=== PATIENT | female | born 1965 | race Caucasian/White ===

== ENCOUNTER 2017-03-14 09:02 | Inpatient (IN) | payer OTHER ==
[~2017-03-14 09:02] MED LIST: ROPIVACAINE 0.2% 80 MG, EPINEPHrine 0.2 MG, KETOROLAC TROMETHAMINE 30 MG in BAG 0 ML IU ONE; TRANEXAMIC ACID 3,000 MG in NS 50 ML IRR ONE; TRANEXAMIC ACID 3,000 MG/50 ML BAG IRR ONE; VANCOMYCIN 1 GM VIAL ONE
--- NOTE | 2017-03-14 09:29 | PDHPUP ---
History & Physical Update H&P update statement: This history and physical update is based on an assessment of the patient which was completed after admission or registration (within 24 hours), but prior to the surgery/procedure. H&P update: H&P reviewed & patient examined, no change in patient's condition since H&P completed
[2017-03-14] MEDS ORDERED: ceFAZolin 2 GM/DEXTROSE 100 ML IV ONE (09:34)
[2017-03-14] MEDS ORDERED: ACETAMINOPHEN 325 MG TAB PO ONE (09:34)
[2017-03-14] MEDS ORDERED: FAMOTIDINE 20 MG TAB PO ONE (09:34)
[2017-03-14] MEDS ORDERED: DEXAMETHASONE 4 MG/ML VIAL IVP ONE (09:34)
[2017-03-14] MEDS ORDERED: LR 1,000 ML IV ONE (09:39)
[2017-03-14] MEDS ORDERED: LIDOCAINE 1% 2 ML INJ ID PRN (09:39)
[2017-03-14] MEDS ORDERED: LIDOCAINE 1% 2 ML INJ ONE (09:46)
[2017-03-14] MEDS ORDERED: LIDOCAINE 2% 5 ML SDV ONE (10:10)
[2017-03-14] MEDS ORDERED: PROPOFOL/EMULSION 500 MG/50 ML BOTTLE IV ONE (10:10)
[2017-03-14] MEDS ORDERED: MIDAZOLAM 2 MG/2 ML VIAL IVP ONE (10:16)
[2017-03-14] MEDS ORDERED: BUPIVACAINE 0.5% 30 ML SDV ONE (10:19)
--- NOTE | 2017-03-14 10:29 | PDANEPAE ---
ANE History of Present Illness left knee OA p/f left TKA ANE Past Medical History - Cardiovascular History Hx Hypertension: No Hx Arrhythmias: No Hx Chest Pain: No Hx Coronary Artery / Peripheral Vascular Disease: No Hx CHF / Valvular Disease: No Hx Palpitations: Yes Cardiovascular History Comment: palpitations with menopause - Pulmonary History Hx COPD: No Hx Asthma/Reactive Airway Disease: Yes Hx Recent Upper Respiratory Infection: No Hx Oxygen in Use at Home: No Hx Sleep Apnea: No Sleep Apnea Screening Result - Last Documented: Negative Pulmonary History Comment: uses inhalers- instructed pt to bring - Neurologic History Hx Cerebrovascular Accident: No Hx Seizures: No Hx Dementia: No - Endocrine History Hx Diabetes: No Obesity: severe - Renal History Hx Renal Disorders: No - Liver History Hx Hepatic Disorders: No - Neurological & Psychiatric Hx Hx Neurological and Psychiatric Disorders: No - Cancer History Hx Cancer: No - Congenital Disorder History Hx Congenital Disorders: No - GI History Hx Gastrointestinal Disorders: Yes Gastrointestinal History Comment: ibs on and off over the years, controlled with diet, multiple food allergies - Other Health History Other Health History: wears glasses - Chronic Pain History Chronic Pain: Yes (left knee) - Surgical History Prior Surgeries: . left knee surgery- meniscus repair and stem cell procedure. ANE Review of Systems Review of Systems: - Exercise capacity METS (RN): 4 METS ANE Patient History - Allergies Allergies/Adverse Reactions: flaxseed Allergy (Severe, Verified 02/19/17 10:29) Anaphylaxis levofloxacin [From Levaquin] Allergy (Severe, Verified 02/19/17 10:29) Other-Enter Comments Sulfa (Sulfonamide Antibiotics) Allergy (Severe, Verified 02/19/17 10:29) Other-Enter Comments erythromycin base [From Erythrocin] Allergy (Intermediate, Verified 02/19/17 10: 29) Itching Beef Containing Products [beef] Allergy (Verified 03/14/17 09:38) egg [eggs] Allergy (Verified 03/14/17 09:38) gluten Allergy (Verified 03/14/17 09:39) Milk Containing Products [dairy] Allergy (Verified 03/14/17 09:38) - Home Medications Home medications: home medication list seen and reviewed Home Medications: Albuterol [Proventil Inhaler HFA (*)] 2 puffs IH Q4 PRN 02/12/17 [Last Taken Unknown] Ascorbic Acid [Vitamin C 500 mg (*)] 3,000 mg PO DAILY 02/12/17 [Last Taken Unknown] Cholecalciferol Vit D3 [Vitamin D3 (*)] 5,000 units PO DAILY 02/12/17 [Last Taken Unknown] EPINEPHrine [Epipen 0.3 MG] 0.3 mg IM ONCE PRN 02/12/17 [Last Taken Unknown] Fluticasone Hfa 110 Mcg [Flovent 110 MCG Hfa MDI (*)] 110 mcg PO DAILY PRN 02/12 [Last Taken Unknown] Fluticasone Hfa 44 Mcg [Flovent 44 MCG Hfa MDI (*)] 44 mcg PO BID 02/12/17 [ Last Taken Unknown] Herbals/Supplements -Info Only 1 ea PO DAILY 02/12/17 [Last Taken Unknown] - NPO status NPO Since - Liquids (Date): 03/14/17 NPO Since - Liquids (Time): 06:30 NPO Since - Solids (Date): 03/13/17 NPO Since - Solids (Time): 19:30 - Anes Hx Anes Hx: no prior problems - Smoking Hx Smoking Status: Never smoked - Family Anes Hx Family Hx Anesthesia Complications: none ANE Labs/Vital Signs - Vital Signs Blood Pressure: 168/98 Heart Rate: 79 Respiratory Rate: 16 O2 Sat (%): 96 Height: 162.56 cm Weight: 102.058 kg ANE Physical Exam - Airway Neck exam: FROM Mallampati Score: Class 1 Mouth exam: normal dental/mouth exam - Pulmonary Pulmonary: no respiratory distress - Cardiovascular Cardiovascular: regular rate and rhythym - ASA Status ASA Status: III ANE Anesthesia Plan Anesthesia Plan: GA with mask, spinal Regional Anesthesia: single shot NB, adductor canal FNB
[2017-03-14] MEDS ORDERED: PROPOFOL 200 MG/20 ML VIAL ONE ×3 (11:16→11:50)
[2017-03-14] MEDS ORDERED: ALBUTEROL 3 ML DEYVIAL IH PRN (11:39)
[2017-03-14] MEDS ORDERED: PROMETHAZINE HCL 25 MG/ML INJ IVP PRN ×2 (11:39→12:16)
[2017-03-14] MEDS ORDERED: LR 500 ML IV PRN (11:39)
[2017-03-14] MEDS ORDERED: fentaNYL 100 MCG/2 ML INJ IVP PRN (11:39)
[2017-03-14] MEDS ORDERED: ONDANSETRON 4 MG/2 ML VIAL IVP PRN ×2 (11:39→12:16)
[2017-03-14] MEDS ORDERED: NALOXONE HCL 0.4 MG/ML INJ IVP PRN (11:39)
[2017-03-14] MEDS ORDERED: HYDROmorphONE/DILAUDID 1 MG/ML INJ IVP PRN (11:39)
[2017-03-14] MEDS ORDERED: OXYCODONE/APAP 5/325 TAB PO PRN (11:39)
[2017-03-14] MEDS ORDERED: ACETAMINOPHEN 500 MG TAB PO PRN (11:39)
--- NOTE | 2017-03-14 12:14 | POSTOPPROG ---
Post Op Note Date of Operation: 03/14/17 Surgeon: Zachariah Mtz Warranty Coordinator: leo eduardo Anesthesiologist: jalyn Anesthesia: IV Sedation, Local (Specify) (adductor canal), Spinal Pre-op Diagnosis: L knee OA Post-op Diagnosis: L knee OA Indication: failed conservative therapies Procedure: L TKA Inf/Abcess present in the surg proc area at time of surgery?: No EBL: Minimal
[2017-03-14] MEDS ORDERED: FLUTICASONE HFA 110 MCG MDI IH PRN (12:15)
[2017-03-14] MEDS ORDERED: ALBUTEROL 60 PUFFS/8 GM MDI IH PRN (12:15)
[2017-03-14] MEDS ORDERED: NON-FORMULARY NEW DRUG (Epinephrine [Epipen 0.3 Mg] 0.3 MG) IM PRN (12:15)
[2017-03-14] MEDS ORDERED: METOCLOPRAMIDE 10 MG/2 ML VIAL IVP PRN (12:16)
[2017-03-14] MEDS ORDERED: BISACODYL 10 MG SUPP PR PRN (12:16)
[2017-03-14] MEDS ORDERED: DIPHENOXYLATE/ATROPINE LOMOTIL 1 TAB PO PRN (12:16)
[2017-03-14] MEDS ORDERED: MAGNESIUM HYDROXIDE 30 ML UDCUP PO PRN (12:16)
[2017-03-14] MEDS ORDERED: diphenhydrAMINE 25 MG CAP PO PRN (12:16)
[2017-03-14] MEDS ORDERED: PROMETHAZINE HCL 25 MG SUPPR PR PRN (12:16)
[2017-03-14] MEDS ORDERED: TEMAZEPAM 15 MG CAP PO PRN (12:16)
[2017-03-14] MEDS ORDERED: POLYETHYLENE GLYCOL 3350 17 GM PKT PO PRN (12:16)
[2017-03-14] MEDS ORDERED: LACTULOSE 20 GM/30 ML UDCUP PO PRN (12:16)
[2017-03-14] MEDS ORDERED: ONDANSETRON DISINTEGRATING 4 MG TAB PO PRN (12:16)
[2017-03-14] MEDS ORDERED: LR 1,000 ML IV SCH (12:30)
[2017-03-14] MEDS ORDERED: ALBUTEROL 200 PUFFS/18 GM MDI IH PRN (12:48)
--- NOTE | 2017-03-14 14:22 | POSTANESTH ---
Post Anesthetic Evaluation Cardiovascular Status: Normal, Stable Respiratory Status: Normal, Stable Level of Consciousness/Mental Status: Can Participate in Eval Pain Control: Adequate, Prn Tx Ordered Nausea/Vomiting Control: Adequate, Prn Tx Ordered Complications Possibly Related to Anesthesia: None Noted
[2017-03-14] MEDS: oxyCODONE IR 5 MG TAB PO PRN ×4 (14:54→23:09)
[2017-03-14] MEDS: ACETAMINOPHEN 325 MG TAB PO SCH ×2 (17:55→23:09)
[2017-03-14] MEDS: ceFAZolin 2 GM/DEXTROSE 100 ML IV SCH (18:04)
[2017-03-14] MEDS ORDERED: FLUTICASONE HFA 44 MCG MDI IH SCH (21:00)
[2017-03-14] MEDS: SENNOSIDES/DOCUSATE SODIUM TAB PO SCH (21:26)
[2017-03-14] MEDS: ASPIRIN 325 MG TAB PO SCH (21:26)
[2017-03-14] MEDS: FAMOTIDINE 20 MG TAB PO SCH (21:27)
[2017-03-15] MEDS: ceFAZolin 2 GM/DEXTROSE 100 ML IV SCH (01:37)
[2017-03-15] MEDS: CYCLOBENZAPRINE 10 MG TAB PO PRN ×2 (01:42→10:13)
[2017-03-15] MEDS: ACETAMINOPHEN 325 MG TAB PO SCH (04:53)
[2017-03-15] MEDS: oxyCODONE IR 5 MG TAB PO PRN ×2 (04:54→09:27)
--- NOTE | 2017-03-15 05:30 | GOP ---
[f rep st] OPERATIVE REPORT DATE OF OPERATION: 03/14/2017 SURGEON: Sharmila Mtz MD STORM SASH MAKER: MICHAEL Dunbar. ANESTHESIA: Spinal. PREOPERATIVE DIAGNOSIS: Left knee osteoarthritis. POSTOPERATIVE DIAGNOSIS: Left knee osteoarthritis. PROCEDURE PERFORMED: Left total knee arthroplasty. FINDINGS: ESTIMATED BLOOD LOSS: 30 cc. INDICATIONS: This is a 51-year-old female with severe and progressive pain and deformity of the left knee unresponsive to conservative care. Risks and benefits of the surgical intervention were explai isabelle in detail. DESCRIPTION OF PROCEDURE: The patient was brought to the operative room and placed on the table in t he supine position. Spinal anesthesia was induced without difficulty. A pneumatic tourniquet was ap plied about the left proximal thigh, and the leg was prepped and draped in a sterile fashion. The le g jones was applied. After exsanguination by elevation the tourniquet was inflated to 300 mm of melanie cury. Incision was made anterior medial from the tibial tuberosity to a point 2 cm proximal to the superior pole of the patella. Medial parapatellar arthrotomy was carried out from the superior pole of the p atella and posteriorly in line with the fibers of the Type 2 VMO. The medial collateral ligament was elevated and the infrapatellar fat pad was resected. The patella was everted and the articular surface was excised. A 35 mm patellar button was placed. T he distal femoral guide hole was drilled and the 60 degree alignment rudi was placed. An 8 mm distal femoral cut was made without difficulty. Attention was turned to the tibia and a standard 9 mm cut based on the lateral tibial condyle was per formed. The tibial articular surface was excised without difficulty. Attention was turned back to the femur and a size 5 femoral cutting block was positioned. Anterior, posterior, and chamfer cuts were made, followed by the intercondylar box cut. The knee was extended and the remnants of the medial and lateral meniscus were excised. The posterio r capsule was injected with ropivacaine, epinephrine and Toradol. A size 4 tibial tray was positione d. Trial reduction was then carried out. There was excellent range of motion, alignment, and stabil ity using the 9 mm polyethylene. All trials were then removed. The joint was thoroughly irrigated and carefully dried. Two packages of cement and 2 grams of vancomycin were mixed in the vacuum mixer and placed on the fixation surface s of all surfaces of the components. The components were implanted and all excess cement was thoroug hly removed. The permanent 9 mm polyethylene was placed without difficulty. The tourniquet was deflated and all bleeders were coagulated. The wound was thoroughly irrigated and closed using interrupted sutures of 2-0 Vicryl for the joint capsule. The subcu was closed with 3-0 Vicryl and the skin with 4-0 Monocryl. Dermabond and Steri-Strips were applied followed by a compre ssive dressing. The patient was then moved from the operating room to the recovery room in good cond ition, having tolerated the procedure well. /[id number]/MODL
[2017-03-15 05:42] LABS: HEMATOCRIT 36.2 % (38.0-47.0); HEMOGLOBIN 12.3 g/dL (12.6-16.3)
--- NOTE | 2017-03-15 07:55 | SOAPPROG ---
SOAP Progress Note Assessment/Plan: Assessment: Patient is doing well POD 1 s/p L TKA Pain management: pain is well controlled on oral pain meds. VTE ppx: recommend aspirin daily for 3 weeks, cont CATARINA and SCDs Anemia: level is expected initially postop. Asymptomatic. Continue to monitor D/c planning: d/c to home today pending release from PT Plan: 03/15/17 07:55 Objective: Vital Signs Temp Pulse Resp BP Pulse Ox 36.4 C 77 19 148/77 H 97 03/15/17 05:00 03/15/17 05:00 03/14/17 23:13 03/15/17 05:00 03/15/17 05:00 Laboratory Results 03/15/17 04:53 03/14/17 03/15/17 03/16/17 05:59 05:59 05:59 Intake Total 3850 Output Total 1480 Balance 2370 ICD10 Worksheet Patient Problems: Problems Problem Status Onset Arthritis of knee, left Acute
[2017-03-15] MEDS: ASPIRIN 325 MG TAB PO SCH (08:45)
[2017-03-15] MEDS: SENNOSIDES/DOCUSATE SODIUM TAB PO SCH (08:46)
[2017-03-15] MEDS: FAMOTIDINE 20 MG TAB PO SCH (08:46)
[2017-03-15] MEDS ORDERED: FLUTICASONE HFA 44 MCG MDI IH SCH (09:00)
--- NOTE | 2017-03-15 09:27 | GDS ---
[f rep st] DISCHARGE SUMMARY ADMISSION DIAGNOSIS: Left knee osteoarthritis. DISCHARGE DIAGNOSIS: Left knee osteoarthritis. PROCEDURE: Left total knee arthroplasty. VTE PROPHYLAXIS: Full-strength aspirin x21 days. BRIEF DESCRIPTION OF HOSPITAL STAY: Patient was admitted for an elective joint arthroplasty. The pa tient tolerated the procedure well and has passed physical therapy. The patient was given appropriat e antibiotic prophylaxis and venous thromboembolism prophylaxis. The patient's pain was well control led on oral pain medication, patient was holding down food, and had urinated. Decision was made to d ischarge the patient. The patient was given post-operative prescriptions pre-operatively. PLAN: Please follow up with Dr. Mtz as scheduled on April 05, 2017. /[id number]/MODL
[2017-03-15 09:33] VITALS: BP 145/96; PULSE 80; RESP 14; TEMP 97.8; O2SAT 94
--- NOTE | 2017-03-15 11:21 | ASDISCHSUM ---
Discharge Information Plan Status:Home with No Needs Medically Cleared to Leave: Discharge Date:03/15/2017 11:15 AM CM D/C Disposition:Home, Routine, Self-Care ADT D/C Disposition:Home, Routine, Self-Care Projected Discharge Date:03/15/2017 11:15 AM Transportation at D/C: Discharge Delay Reason: Follow-Up Date:03/15/2017 11:15 AM Discharge Slot: Final Diagnosis: Placement Information Patient Contact Information Contact Name:NETTA Relationship: Address:[address] [address] Home Phone: City:[place] Alternate Phone: [facility]/Zip Code:[place] [address] Email: Financial Information Financial Class:HMO and PPO Plans Primary Plan Desc:[employer] PPO POS HMO SIG ADM Primary Plan Number:[id number] Secondary Plan Desc: Secondary Plan Number: Assessment Information Intervention Information
== END 2017-03-15 11:15 | disposition home or self-care (01) | DRG 470 ==
LOC: F3N 09:02
PROVIDERS: ADMIT Orthopaedic Surgery; ATTEND Orthopaedic Surgery
PROC: 0SRD0J9 Replacement of Left Knee Joint with Synthetic Substitute, Cemented, Open Approach (ICD-10-PCS; principal; 2017-03-14 11:15)
DX: M17.12 Unilateral primary osteoarthritis, left knee (principal); E66.9 Obesity, unspecified; Z68.30 Body mass index [BMI] 30.0-30.9, adult
CPT/HCPCS: 97116-GP; 97161-GP; 97165-GO; C1713; J0171; J0690; J1100; J1885; J2250; J2704; J2795; J3370